=== PATIENT | female | born 1945 | race Asian ===

== ENCOUNTER 2018-04-15 12:38 | Emergency (ER) | payer OTHER ==
[2018-04-15] MEDS ORDERED: predniSONE 20 MG TAB PO (15:00)
[2018-04-15] MEDS: CYCLOBENZAPRINE 10 MG TAB PO (15:02)
[2018-04-15] MEDS: ACETAMINOPHEN 500 MG TAB PO (15:02)
== END 2018-04-15 17:35 | disposition home or self-care (01) ==
LOC: FTE 12:38
DX: M79.604 Pain in right leg (principal); I10 Essential (primary) hypertension
CPT/HCPCS: 93971; 99284-25